=== PATIENT | male | born 1965 ===

== ENCOUNTER 2017-10-08 12:05 | Emergency (ER) | payer OTHER ==
[~2017-10-08] VITALS: Ht 180.3 cm; Wt 89.4 kg
[2017-10-08] MEDS ORDERED: ZITHROMAX500 MG (12:34)
[2017-10-08] MEDS ORDERED: TESSALON PERLE100 M1 (12:34)
== END 2017-10-08 15:52 | disposition home or self-care (01) ==
LOC: ER 12:05
DX: B34.9 Viral infection, unspecified (principal); G44.209 Tension-type headache, unspecified, not intractable; J11.1 Influenza due to unidentified influenza virus with other respiratory manifestations